=== PATIENT | female | born 1965 | race Caucasian/White ===

== ENCOUNTER 2017-08-07 12:59 | Outpatient (CLI) | payer OTHER ==
--- NOTE | 2017-08-07 14:14 | Mammography Report ---
BONE DEXA:08/07/17 00:00:00 CLINICAL: Postmenopausal. No comparison. TECHNIQUE: Two site bone DEXA performed on an Hologic scanner. FINDINGS: The average BMD of the lumbar spine L1-L4 is 0.796g/cm squared with a T-score of -2.3 and a Z-score of -1.3. The average BMD of the left hip is 0.809g/cm squared with a T-score of -1.1 and a Z-score of -0.5. IMPRESSION: 1. WHO classification: Osteopenia with increased fracture risk based on both spine and left hip measurements. 2. The FRAX 10 year fracture probability for a major osteoporotic fracture is 3.1%. 3. The FRAX 10 year fracture probability for hip fracture is 0.3%. Note: FRAX version 3.01. Fracture probability calculated for an untreated patient. Fracture probability may be lower if the patient has received treatment. RECOMMENDATION: Clinical correlation and routine screening. DEFINITIONS: BMD = Bone Mineral Density T-score = BMD related to mean peak bone mass of young adult (mean expressed in Standard Deviation) Z-score = Age matched BMD expressed in SD World Health Organization (WHO) Diagnostic Criteria Normal T-score > -1 SD Osteopenia T-score between -1 and -2.4 SD Osteoporosis T-score -2.5 SD or below NOTE: BMD is not the only risk factor for fracture; also consider factors such as the patient's age, risk of falling, previous osteoporotic fracture, family history of osteoporotic fractures, current smoker, and low body weight. All treatment decisions require clinical judgment and consideration of individual patient factors, including patient preferences, comorbidities, previous drug use and risk factors not captured in the FRAX model (e.g. frailty, falls, vitamin D deficiency, increased bone turnover, interval significant decline in BMD). Fracture probability is calculated for an untreated patient. Fracture probability may be lower if the patient has received treatment. Z-scores are not calculated if >80 years of age.
--- NOTE | 2017-08-07 14:22 | Mammography Report ---
Bilateral mammogram: No previous studies available. CAD study utilized. Findings: Predominance adipose tissue bilaterally. Focal dense asymmetry mid right breast left upper breast and right upper breast. No microcalcifications. Normal axilla. Impression: Focal asymmetry of the right and left breast comparison with previous studies is recommended. If previous studies are not available spot magnification and sonographic examination is advised. BI-RADS CATEGORY: 0 = Needs additional imaging evaluation ACR BI-RADS MAMMOGRAPHIC CODES: 0 = Needs additional imaging evaluation; 1 = Negative; 2 = Benign; 3 = Probably benign; 4 = Suspicious; 5 = Malignant; 6 = Known biopsy-proven malignancy COMMENT: 1. Dense breast tissue, i.e., adenosis, fibrocystic changes, etc., may obscure an underlying neoplasm. 2. Approximately 10% of cancers are not detected with mammography. 3. A negative mammography report should not delay biopsy if a clinically suspicious mass is present. COMMENT: Patient follow-up letters are generated in [employer].
== END 2017-08-07 13:00 | disposition home or self-care (01) ==
LOC: MAMMO 12:59
PROVIDERS: ATTEND Internal Medicine
DX: Z12.31 Encounter for screening mammogram for malignant neoplasm of breast (principal); M85.88 Other specified disorders of bone density and structure, other site; Z78.0 Asymptomatic menopausal state
CPT/HCPCS: 77080; G0202; 77067

== ENCOUNTER 2019-08-25 09:01 | Outpatient (CLI) | payer OTHER ==
[2019-08-25 09:56] LABS: Basophils % (Auto) 0.5 % (0.0-1.8); Eosinophils # (Auto) 0.2 K/mm3 (0.0-0.4); Eosinophils % (Auto) 4.3 % (0.0-4.3); Hematocrit 38.9 % (30.3-42.9); Hemoglobin 12.9 gm/dl (10.1-14.3); Lymphocytes # (Auto) 1.7 K/mm3 (1.2-5.4); Lymphocytes % (Auto) 38.1 % (13.4-35.0); Mean Corpuscular HGB Conc 33 % (30-34); Mean Corpuscular Volume 89 fl (79-97); Monocytes # (Auto) 0.3 K/mm3 (0.0-0.8); Monocytes % (Auto) 7.6 % (0.0-7.3); Platelet Count 237 K/mm3 (140-440); Red Cell Distribution Width 12.8 % (13.2-15.2)
[2019-08-25 10:18] LABS: Alanine Aminotransferase 11 units/L (7-56); Albumin 4.3 g/dL (3.9-5); BUN/Creatinine Ratio 23; Blood Urea Nitrogen 18 mg/dL (7-17); Calcium 8.8 mg/dL (8.4-10.2); Chol/HDL Ratio 5.34 %; HDL Cholesterol 50 mg/dL (40-59); Hemolysis Index 2; LDL Cholesterol,Direct 204 mg/dL (50-130)
[2019-08-28 11:51] LABS: Vitamin D, 25-OH, D2 <4 ng/mL
== END 2019-08-25 09:02 | disposition home or self-care (01) ==
LOC: LAB 09:01
PROVIDERS: ATTEND Internal Medicine
DX: Z13.1 Encounter for screening for diabetes mellitus (principal); E78.5 Hyperlipidemia, unspecified
CPT/HCPCS: 36415; 80053; 80061; 82306; 82607; 83036; 84443; 85025

== ENCOUNTER 2019-12-23 10:23 | Outpatient (CLI) | payer OTHER ==
[2019-12-23 11:06] LABS: Chol/HDL Ratio 2.8 %
== END 2019-12-23 10:24 | disposition home or self-care (01) ==
LOC: LAB 10:23
PROVIDERS: ATTEND Internal Medicine
DX: E78.5 Hyperlipidemia, unspecified (principal)
CPT/HCPCS: 36415; 80061

== ENCOUNTER 2021-06-24 11:37 | Outpatient (CLI) | payer OTHER ==
[2021-06-24 12:22] LABS: Alanine Aminotransferase 38 units/L (7-56); Albumin 4.6 g/dL (3.9-5); BUN/Creatinine Ratio 16; Blood Urea Nitrogen 13 mg/dL (7-17); Calcium 9.6 mg/dL (8.4-10.2); Chol/HDL Ratio 2.56 %; HDL Cholesterol 57 mg/dL (40-59); Hemolysis Index 4; LDL Cholesterol,Direct 88 mg/dL (50-130)
--- NOTE | 2021-06-24 16:59 | XRay Report ---
Pelvis and right hip 2 views INDICATION: Right hip pain FINDINGS: There is moderate to advanced degenerative change in right hip with joint space narrowing. No acute fracture dislocation. Sacrum and sacroiliac joints appear normal. Signer Name: Chuy Schulte MD Signed: 06/24/2021 4:55 PM Workstation Name: [id number]
== END 2021-06-24 11:38 | disposition home or self-care (01) ==
LOC: XRAY 11:37
PROVIDERS: ATTEND Internal Medicine
DX: M16.11 Unilateral primary osteoarthritis, right hip (principal); E78.5 Hyperlipidemia, unspecified; N39.0 Urinary tract infection, site not specified
CPT/HCPCS: 36415; 80053; 80061; 82550

== ENCOUNTER 2021-10-05 12:31 | Outpatient (CLI) | payer OTHER ==
[2021-10-05 13:10] LABS: Bilirubin,Urine NEG (Negative); Blood,Urine NEG (Negative); Color,Urine Yellow (Yellow); Mucus,Urine FEW /HPF; Protein,Urine <15 mg/dL mg/dL (Negative); Urobilinogen,Urine < 2.0 mg/dL (<2.0)
--- NOTE | 2021-10-05 15:41 | XRay Report ---
Abdomen single view INDICATION: Gross hematuria IMPRESSION: Moderate stool burden throughout the colon. No definite calculus is identified within the limits of the exam. Signer Name: Andrew Betancourt MD Signed: 10/05/2021 3:37 PM Workstation Name: [id number]
== END 2021-10-05 12:32 | disposition home or self-care (01) ==
LOC: LAB 12:31
PROVIDERS: ATTEND Internal Medicine
DX: R31.0 Gross hematuria (principal)
CPT/HCPCS: 74018; 81001